=== PATIENT | male | born 1955 | race Caucasian/White ===

== ENCOUNTER → 2017-03-07 | Outpatient (CLI) | payer OTHER ==
[~2017-03-07] MED LIST: ASPI81TA28 PO; CEPH500C2 PO; CRS/10 PO; IBUP-1428 PO; LISI-461 PO; METO-452 PO; METO25TA3 PO
[2017-03-07 12:25] LABS: BASO % 0.4 %; BASO ABS # 0.02 K/uL (0-0.2); COMPLETE YES; EOS % 6.1 %; HEMATOCRIT 43.1 % (42-52); LYMPH % 39.1 %; MEAN CELL VOLUME 92.3 fL (80-100); MEAN CORPUSCULAR HEMOGLOBIN 30.6 pg (25-34); MEAN CORPUSCULAR HGB CONC 33.2 g/dl (32-36); MEAN PLATELET VOLUME 9.9 fL (7.4-10.4); MONO % 10.4 %; PLATELET COUNT 207 K/uL (130-400); RED BLOOD COUNT 4.67 M/uL (4.7-6.1); WHITE BLOOD COUNT 5.11 K/uL (4.8-10.8)
[2017-03-07 13:03] LABS: ALB/GLOB RATIO 1.2 (0.9-2); ALT/SGPT 47 U/L (12-78); BLOOD UREA NITROGEN 18 mg/dl (7-18); BUN/CREATININE RATIO 16.3 (10-20); CARBON DIOXIDE 24 mmol/L (21-32); CHLORIDE 109 mmol/L (98-107); CHOLESTEROL 115 mg/dl (0-200); GLUCOSE 95 mg/dl (70-99); POTASSIUM 4.2 mmol/L (3.5-5.1); SODIUM 141 mmol/L (136-145); TRIGLYCERIDES 92 mg/dl (0-150); VERY LOW DENSITY LIPOPROT CALC 18 mg/dl
[2017-03-07 13:05] LABS: ALKALINE PHOSPHATASE 68 U/L (45-117); AST/SGOT 29 U/L (15-37); CHOLESTEROL/HDL RATIO 4.1; HDL CHOLESTEROL 28 mg/dl; PROSTATE SPECIFIC ANTIGEN 0.612 ng/ml (0.000-4.000)
[2017-03-07 13:12] LABS: CALCIUM 8.8 mg/dl (8.5-10.1)
[2017-03-07 16:48] LABS: URINE APPEARANCE CLOUDY (CLEAR); URINE BILIRUBIN NEG (NEG); URINE COLOR YELLOW; URINE EPITHELIAL CELL AUTO 0-5 /lpf (0-5); URINE NITRITE NEG (NEG); URINE PH 5.5 (4.5-7.5); URINE SPECIFIC GRAVITY 1.027 (1.000-1.030); UROBILINOGEN NEG (NEG)
[2017-03-07 16:49] LABS: MANUAL MICROSCOPIC REQUIRED? NO; REVIEW REQ? NO
== END | disposition home or self-care (01) ==
LOC: C.LABPBG 08:50
PROVIDERS: ATTEND Physician Assistant Medical
DX: E78.5 Hyperlipidemia, unspecified (principal); I10 Essential (primary) hypertension; Z12.5 Encounter for screening for malignant neoplasm of prostate

== ENCOUNTER 2017-07-11 12:52 | Emergency (ER) | payer OTHER ==
[~2017-07-11] VITALS: Ht 170.2 cm; Wt 87.5 kg
[~2017-07-11 12:52] MED LIST changes: -CEPH500C2 PO; -LISI-461 PO; -METO-452 PO
[2017-07-11 13:00] VITALS: TEMP 36.8; Ht 170.2 cm; Wt 87.5 kg
[2017-07-11] MEDS ORDERED: DIPHTHERIA/TETANUS/PERTUSSIS 0.5 ML SYR/VIAL IM. ONE (14:15)
[2017-07-11] MEDS ORDERED: LIDO/EPINEPHRINE/SOD BICARB 20 ML VIAL INFIL ONE (14:15)
[2017-07-11] MEDS ORDERED: SODIUM CHLORIDE 0.9% 1000ML 1,000 ML IV ONE (14:15)
--- NOTE | 2017-07-11 14:21 | EMERGENCY ROOM VISIT NOTE ---
History First contact with patient: 13:57 Chief Complaint: OTHER COMPLAINT Stated Complaint: SYNCOPE/LACERATION History of Present Illness The patient is a 62 year old male who presents to the Emergency Room with complaints of a syncopal episode that occurred at approximately noon today. 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 He thinks that it may have kicked back and hit him in the left leg. He did sustain a laceration. The patient was able to sit down. The patient's was present during the episode. She says that his eyes rolled back in his head and he began to fall to the ground. She was able to catch him to ease him to the ground. He was out for approximately 1 minute. He does report diffuse sweating during the episode. He denies any dizziness, lightheadedness, chest pain, chest pressure or difficulty breathing. The patient does have a cardiac history. He has 2 stents that were placed 14 years ago. He is unsure that his tetanus is up-to- date. Review of Systems 10 system review performed and negative unless noted in HPI or below Past Medical/Surgical History Medical Problems: (1) Cardiac stents (2) Hypertension (3) [place] (myocardial infarction) Family History Heart disease Hypertension Social History Smoking Status: Former Smoker Marital Status: Housing Status: lives with family, lives with significant other Occupation Status: employed Current/Historical Medications Scheduled Aspirin (Aspirin Ec), 81 MG PO DAILY Cephalexin Monohydrate (Keflex), 500 MG PO TID Lisinopril (Lisinopril), 10 MG PO DAILY Metoprolol Succinate (Toprol Xl), 50 MG PO DAILY Rosuvastatin Calcium (Crestor), 10 MG PO DAILY Physical Exam Vital Signs Date Time Temp Pulse Resp B/P (MAP) Pulse Ox O2 Delivery O2 Flow Rate FiO2 07/11/17 16:38 68 22 142/79 97 Room Air 07/11/17 14:55 64 16 136/72 97 Room Air 07/11/17 14:24 69 07/11/17 13:11 63 118/66 69 128/66 71 134/72 07/11/17 13:00 36.8 54 14 152/68 97 Room Air Physical Exam VITALS: Vitals are noted on the nurse's note and reviewed by myself. Vital signs stable. GENERAL: 62-year-old male, in no acute distress, nondiaphoretic, well-developed well-nourished. SKIN: There is a 3 cm laceration noted to the left lower extremity proximal to the knee. No active bleeding. The edges gave the part with traction. The wound appears clean. HEAD: Normocephalic atraumatic. MOUTH: Mucous membranes moist. NECK: No JVD. HEART: Systolic murmur, regular rate and rhythm without murmurs gallops or rubs. LUNGS: Clear to auscultation bilaterally without wheezes, rales or rhonchi. No accessory muscle use. ABDOMEN: Positive bowel sounds x 4.Soft, nontender, without organomegaly. MUSCULOSKELETAL: No muscle atrophy, erythema, or edema noted. Full range of motion in all extremities. No tenderness to palpation. Strength 5/5 throughout. NEURO: Patient was alert and oriented to person place and time. Normal sensation to touch. No focal neurological deficits. Medical Decision & Procedures ER Provider Diagnostic Interpretation: CXR IMPRESSION: No acute cardiopulmonary process. Laboratory Results 07/11/17 13:20 Red Blood Count 4.52, Mean Corpuscular Volume 90.7, Mean Corpuscular Hemoglobin 31.0, Mean Corpuscular Hemoglobin Concent 34.1, Mean Platelet Volume 10.4, Neutrophils (%) (Auto) 62.8, Lymphocytes (%) (Auto) 24.3, Monocytes (%) (Auto) 8.5, Eosinophils (%) (Auto) 3.9, Basophils (%) (Auto) 0.4, Neutrophils # (Auto) 4.23, Lymphocytes # (Auto) 1.64, Monocytes # (Auto) 0.57, Eosinophils # (Auto) 0.26, Basophils # (Auto) 0.03 07/11/17 13:30 Test 07/11/17 13:20 07/11/17 13:30 White Blood Count 6.74 K/uL (4.8-10.8) Red Blood Count 4.52 M/uL (4.7-6.1) Hemoglobin 14.0 g/dL (14.0-18.0) Hematocrit 41.0 % (42-52) Mean Corpuscular Volume 90.7 fL (80-100) Mean Corpuscular Hemoglobin 31.0 pg (25-34) Mean Corpuscular Hemoglobin Concent 34.1 g/dl (32-36) Platelet Count 184 K/uL (130-400) Mean Platelet Volume 10.4 fL (7.4-10.4) Neutrophils (%) (Auto) 62.8 % Lymphocytes (%) (Auto) 24.3 % Monocytes (%) (Auto) 8.5 % Eosinophils (%) (Auto) 3.9 % Basophils (%) (Auto) 0.4 % Neutrophils # (Auto) 4.23 K/uL (1.4-6.5) Lymphocytes # (Auto) 1.64 K/uL (1.2-3.4) Monocytes # (Auto) 0.57 K/uL (0.11-0.59) Eosinophils # (Auto) 0.26 K/uL (0-0.5) Basophils # (Auto) 0.03 K/uL (0-0.2) RDW Standard Deviation 43.7 fL (36.4-46.3) RDW Coefficient of Variation 13.2 % (11.5-14.5) Immature Granulocyte % (Auto) 0.1 % Immature Granulocyte # (Auto) 0.01 K/uL (0.00-0.02) Anion Gap 5.0 mmol/L (3-11) Est Creatinine Clear Calc Drug Dose 75.1 ml/min Estimated GFR () 86.5 Estimated GFR (Non- 74.7 BUN/Creatinine Ratio 15.2 (10-20) Calcium Level 8.5 mg/dl (8.5-10.1) Troponin I < 0.015 ng/ml (0-0.045) Medications Administered Medications (Trade) Dose Ordered Sig/Lai Route Start Time Stop Time Status Last Admin Dose Admin Sodium Chloride 1,000 ml @ 999 mls/hr Q1H1M ONCE IV 07/11/17 14:15 07/11/17 15:15 DC 07/11/17 14:15 999 MLS/HR Diphtheria/ Pertussis/Tetanus Vacc (Adacel Inj) 0.5 ml ONCE ONCE IM. 07/11/17 14:15 07/11/17 14:16 DC 07/11/17 14:39 0.5 ML Procedure Verbal consent was obtained to perform the procedure. Using sterile technique the wound was cleaned with Betadine. The area was sterilely draped. 6 ml of lidocaine with epinephrine was used to anesthetize the laceration. Once the patient was anesthetized, the wound was copiously irrigated under pressure with sterile saline. The wound was explored and there were no deep structures injured such as tendons, bone, or significant blood vessels. The laceration was repaired using simple interrupted 4-0 nylon sutures with the wound edges being well approximated. The patient tolerated the procedure well. Hemostasis was achieved. The area was cleaned with sterile saline and dressed with bacitracin ointment and bandage. The patient was given a tetanus booster. The patient was discharged home in good condition. ECG Indication: syncope Rate (beats per minute): 57 Rhythm: sinus bradycardia Change: no significant change ED Course Patient was seen and examined Vital signs including blood pressure were reviewed medications list was verified with patient Labs were obtained, and a saline lock was established The laceration was repaired. Please see my procedure note. The workup was discussed with the patient and the patient's significant other. The patient was given a tetanus shot. I reviewed discharge instructions the patient. They voiced understanding and had no further questions. Medical Decision Differential diagnosis: Vasovagal syncope, cardiogenic syncope, neurogenic syncope, dehydration,, pulmonary embolus This patient is a 62-year-old male presented to the emergency department with a syncopal episode after cutting himself. This is most likely vasovagal syncope secondary to the site of the laceration. Since the patient has a cardiac history, I did a cardiac workup. EKG shows no acute ischemia. No arrhythmia noted. His troponin is negative. He is not orthostatic. the laceration was repaired, and his tetanus was updated. A believe he is stable to be discharged home. He will follow-up with his primary care physician. Suture removal in 14 days. He'll return with any new or worsening symptoms. This chart was completed in part utilizing [employer] Voice Recognition software. Attempts were made to minimize the grammatical errors, random word insertions, pronoun errors and incomplete sentences. Any formal questions or concerns about the content, text or information contained within the body of this dictation should be directly addressed to the provider for clarification. Medication Reconcilliation Current Medication List: was personally reviewed by me Blood Pressure Screening Patient's blood pressure: Normal blood pressure Impression Primary Impression: Syncope Additional Impression: Laceration Departure Information Dispostion Home / Self-Care Condition GOOD Referrals Christian Guajardo PA-C (PCP) Patient Instructions My [facility] Additional Instructions You were evaluated in the emergency department for a laceration to the left leg and also a syncopal episode (passing out.) This was likely a response to the laceration on your leg. Please rest. No strenuous activity for the next 2 days. I would avoid bending the knee for the first 3 days. Keep wound clean. It is okay to gently wash the area with soapy water. Do not submerse it in water for long periods of time such as swimming, going in hot tubs or taking baths until the sutures come out. Do not allow any crusting or dried blood to accumulate on sutures. If this occurs, use a 1:1 solution of hydrogen peroxide/water on a Q-tip to clean the wound. Use an antibiotic ointment for 3-4 days, then let wound dry. Suture removal in 14 days. Return sooner for any signs of infection (increasing redness, swelling, drainage). Ice and elevate for swelling and pain. Ibuprofen 600 mg and Tylenol 1000 mg every 6 hrs for pain. Problem Qualifiers
[2017-07-11] MEDS ORDERED: LISI-461 PO (14:24)
[2017-07-11] MEDS ORDERED: METO-452 PO (14:24)
[2017-07-11] MEDS ORDERED: CEPH500C2 PO (14:24)
--- NOTE | 2017-07-11 14:54 | DIAGNOSTIC IMAGING REPORT ---
CHEST ONE VIEW PORTABLE HISTORY: 62 years-old Male syncope cardiac hx acute syncope. COMPARISON: Chest radiograph and CTA chest 04/02/2013 TECHNIQUE: Portable upright AP view of the chest FINDINGS: Cardiac silhouette is mildly enlarged. There is no pneumothorax, pleural effusion, focal airspace consolidation or overt pulmonary edema. The bones of the chest are grossly intact. IMPRESSION: No acute cardiopulmonary process. The above report was generated using voice recognition software. It may contain grammatical, syntax or spelling errors. Electronically signed by: Jesus Silva M.D. 07/11/2017 2:52 PM Dictated Date/Time: 07/11/2017 2:51 PM
[2017-07-11 15:03] LABS: BASO % 0.4 %; BASO ABS # 0.03 K/uL (0-0.2); COMPLETE YES; EOS % 3.9 %; IG% 0.1 %; LYMPH % 24.3 %; LYMPH ABS # 1.64 K/uL (1.2-3.4); MEAN CELL VOLUME 90.7 fL (80-100); MEAN CORPUSCULAR HGB CONC 34.1 g/dl (32-36); MEAN PLATELET VOLUME 10.4 fL (7.4-10.4); MONO % 8.5 %; NEUT % 62.8 %; PLATELET COUNT 184 K/uL (130-400); RED BLOOD COUNT 4.52 M/uL (4.7-6.1); WHITE BLOOD COUNT 6.74 K/uL (4.8-10.8)
[2017-07-11 15:59] LABS: BLOOD UREA NITROGEN 16 mg/dl (7-18); BUN/CREATININE RATIO 15.2 (10-20); CALCIUM 8.5 mg/dl (8.5-10.1); CARBON DIOXIDE 25 mmol/L (21-32); CHLORIDE 112 mmol/L (98-107); CREATININE 1.05 mg/dl (0.60-1.40); GLUCOSE 110 mg/dl (70-99); POTASSIUM 4.3 mmol/L (3.5-5.1); SODIUM 142 mmol/L (136-145)
[2017-07-11 16:38] VITALS: BP 142/79; PULSE 68; O2SAT 97
== END 2017-07-11 16:47 | disposition home or self-care (01) ==
LOC: EDBD 12:52 → C.EDC 12:53
DX: R55 Syncope and collapse (principal); S71.112A Laceration without foreign body, left thigh, initial encounter; W31.1XXA Contact with metalworking machines, initial encounter; I10 Essential (primary) hypertension; R00.1 Bradycardia, unspecified; I25.2 Old myocardial infarction; Z95.5 Presence of coronary angioplasty implant and graft; Z87.891 Personal history of nicotine dependence; Z79.82 Long term (current) use of aspirin; Z82.49 Family history of ischemic heart disease and other diseases of the circulatory system; Z23 Encounter for immunization

== ENCOUNTER → 2017-12-23 | Outpatient (CLI) | payer OTHER ==
[~2017-12-23] MED LIST changes: +CEPH500C2 PO; -IBUP-1428 PO; +LISI-461 PO; +METO-452 PO; -METO25TA3 PO
[2017-12-23 13:17] LABS: BASO % 0.4 %; BASO ABS # 0.02 K/uL (0-0.2); EOS % 2.8 %; EOS ABS # 0.15 K/uL (0-0.5); HEMATOCRIT 43.7 % (42-52); HEMOGLOBIN 15.2 g/dL (14.0-18.0); IG# 0.01 K/uL (0.00-0.02); LYMPH % 40.7 %; MEAN CELL VOLUME 90.5 fL (80-100); MEAN CORPUSCULAR HEMOGLOBIN 31.5 pg (25-34); MEAN CORPUSCULAR HGB CONC 34.8 g/dl (32-36); MEAN PLATELET VOLUME 9.8 fL (7.4-10.4); MONO % 9.3 %; NEUT % 46.6 %; NEUT ABS # 2.52 K/uL (1.4-6.5); PLATELET COUNT 201 K/uL (130-400); RED CELL DISTRIBUTION WIDTH CV 13.7 % (11.5-14.5); RED CELL DISTRIBUTION WIDTH SD 45.3 fL (36.4-46.3)
[2017-12-23 13:42] LABS: ALBUMIN 4.2 gm/dl (3.4-5.0); ALKALINE PHOSPHATASE 62 U/L (45-117); ALT/SGPT 36 U/L (12-78); AST/SGOT 28 U/L (15-37); BLOOD UREA NITROGEN 14 mg/dl (7-18); CALCIUM 8.9 mg/dl (8.5-10.1); CARBON DIOXIDE 26 mmol/L (21-32); CHOLESTEROL 149 mg/dl (0-200); CREATININE 1.06 mg/dl (0.60-1.40); GLUCOSE,FASTING 95 mg/dl (70-99); LDL CHOLESTEROL (DIRECT) 106 mg/dl; POTASSIUM 4.1 mmol/L (3.5-5.1); SODIUM 140 mmol/L (136-145); TOTAL PROTEIN 7.3 gm/dl (6.4-8.2)
== END | disposition home or self-care (01) ==
LOC: C.LABPBG 10:27
PROVIDERS: ATTEND Physician Assistant Medical
DX: I10 Essential (primary) hypertension (principal); E78.5 Hyperlipidemia, unspecified; Z12.5 Encounter for screening for malignant neoplasm of prostate

== ENCOUNTER → 2018-05-13 | Outpatient (CLI) | payer OTHER ==
[2018-05-13 13:47] LABS: CHOLESTEROL 140 mg/dl (0-200); GLUCOSE,FASTING 105 mg/dl (70-99); LDL CHOLESTEROL (DIRECT) 97 mg/dl
== END | disposition home or self-care (01) ==
LOC: C.LABPBG 07:47
PROVIDERS: ATTEND Physician Assistant Medical
DX: Z00.00 Encounter for general adult medical examination without abnormal findings (principal)

== ENCOUNTER 2024-03-08 14:56 | Observation (INO) ==
--- NOTE | 2024-03-08 15:02 | Emergency Department Note ---
Impression & Plan Syncope, Nausea & vomiting, History of coronary artery disease ED Provider Note NAME: JOSE HICKEY AGE: 68 SEX: M : 1955 ARRIVES VIA: Ambulance INFORMANT: Patient, ED PROVIDER(S): Beltran Contreras MD CHIEF COMPLAINT: MEDICAL DECISION MAKING: Patient presents due to concern for syncope. Patient currently does feel improved compared to prior. IV was established and blood work was obtained. Patient was ordered IV fluid bolus 500 cc. Patient currently denies any nausea. Patient has a normal white count H&H and platelet count patient's kidney function is unremarkable. Bilirubin 1.1. The patient does have an elevated TSH and free T4 pending troponin negative. Chest x-ray without signs of obvious pneumonia or pneumothorax. I did speak with the on-call hospitalist service Dr. Rhoades and the patient was admitted to the medicine service. Discussion w/ other healthcare providers: Dr. Rhoades inpatient medicine service Prior /Outside records reviewed: None Differential diagnosis: Vasovagal event, dehydration, infection, hypoglycemia, electrolyte abnormalities, arrhythmia, pulmonary embolism, seizure among others were considered. Diagnostics, as interpreted by me: ECG: Normal sinus rhythm, rate of 77, normal intervals, normal axis no ST elevations or TWI Cardiac monitoring: An order was placed for continuous cardiac monitoring. The monitor shows a rate of 75 with sinus rhythm. Patient was placed on pulse oximetry Medical decision rules: None Imaging studies: I informally interpreted the patient's chest x-ray does not show obvious pneumonia or pneumothorax with formal report to follow. HPI: Patient presents due to concern for syncope that occurred just prior to arrival. The patient states that he was finishing up his shower and had been outside and had been taking a cool shower when he got lightheaded dizzy and associated nausea. This seemed to worsen and the sat down on the edge of the tub and called for his . Patient does not believe that he fell or hit his head. did present and he states that she was able to hold him and lay him down. No head strike. He did have loss of consciousness for approximately 3 to 5 seconds in duration. No reported incontinence or tongue biting and noticed seizure-like activity. The patient does have a prior history of CAD with 2 stents placed about 20 years prior. He does follow with Dr. Infante last had a stress test completed about 2 years ago. Patient states that he was outside today and it was fairly warm. Patient denies any current chest pains or shortness of breath but states that his symptoms are somewhat similar to when he had his prior stents. Patient states that he does feel improved. The patient's states that he did appear very pale when he passed out but his color is significantly improved. Patient's BSG was 124 for EMS and did receive 3 additional baby aspirin. PAST MEDICAL HISTORY: See Below PAST SURGICAL HISTORY: See Below SOCIAL HISTORY: See Below HOME MEDICATIONS: See Below ALLERGIES: See Below VITALS: See Below PHYSICAL EXAMINATION: GENERAL: NAD, non-toxic. EYE EXAM: Normal conjunctiva. PERRL, no anisocoria and EOM's grossly intact w/o pain. OROPHARYNX: Moist mucus membranes, grossly normal dentition. NECK: Trachea midline, no stridor. LUNGS: Clear to auscultation. Normal chest wall mechanics. HEART: NSR, no MRG. ABDOMEN: Abdomen soft, non-tender, no masses, no rebound or guarding. BACK: No CVA TTP. SKIN: No rashes and no bruising. UPPER EXTREMITIES: Upper extremities are grossly normal. LOWER EXTREMITIES: Grossly normal, trace pretibial edema without any calf pain or erythema. NEURO EXAM: A&O x3, cranial nerves II-XII grossly intact, normal speech, moves all 4 extremities. Past Med/Surg History Problem List (Updated 03/08/24 @ 16:32 by Beltran Contreras MD) History of coronary artery disease (Acute) Nausea & vomiting (Acute) Syncope (Acute) Chronic cough Sensorineural hearing loss (SNHL) of left ear with restricted hearing of right ear Hypertrophy of both inferior nasal turbinates Asymmetrical left sensorineural hearing loss Itching of ear Chronic rhinitis Nasal septal deviation Abdominal fullness (Acute) Anemia (Acute) H/O heart artery stent (Acute) Fatigue (Acute) Fever (Acute) Laceration (Acute) prison (current) use of systemic steroids (Acute) Rash (Acute) Temporal arteritis (Acute) Visual impairment in both eyes (Acute) Bladder outlet obstruction Hypertension (Chronic) Acute back pain (Acute) Flank pain (Acute) GI bleed (Acute) Syncope (Acute) Surgical History History of esophagogastroduodenoscopy (EGD) S/P colonoscopy S/P cardiac cath Family History Mother Hypertension Heart disease Father Heart disease Social History Smoking Status: Former smoker Hx Alcohol Use: Yes Preferred Language: Kyrgyz Communication Ability: Effective marital status: Current Living Situation: Spouse current occupational status: retired Feels Safe at Home: Yes Allergies Allergies Allergy/AdvReac Type Severity Reaction Status Date / Time No Known Drug Allergies Allergy Unknown Unknown Verified 04/21/23 09:13 Home Meds Home Medications Medication Instructions Recorded Confirmed ibuprofen 200 mg tablet (Motrin IB) 400 mg PO Q6H PRN Pain 08/14/19 04/21/23 losartan 100 mg tablet (Cozaar) 100 mg PO DAILY 08/14/19 04/21/23 rosuvastatin 10 mg tablet (Crestor) 10 mg PO DAILY 08/14/19 04/21/23 aspirin 81 mg tablet,delayed 81 mg PO DAILY 02/05/23 04/21/23 release carvedilol 6.25 mg tablet 6.25 mg PO BID 02/05/23 04/21/23 Previous Rx's Medication Instructions Recorded omeprazole 10 mg capsule,delayed 10 mg PO DAILY #90 caps 03/19/23 release famotidine 20 mg tablet (Acid 20 mg PO DAILY #90 tabs 03/31/23 D[employer] Work[employer] (famotidine)) Results & Data (ED) Vital Signs Vital Signs - 24 hr 03/08/24 15:05 03/08/24 15:05 03/08/24 15:05 Temperature 36.7 C Temperature Source Oral Pulse Rate 74 Respiratory Rate 18 18 Blood Pressure 158/61 H Blood Pressure Mean 93 Pulse Oximetry 95 Oxygen Delivery Method Room Air Room Air Sepsis Recent Fever Within 48 Hours No Sepsis New/Unexplained Change in Mental Status N/A Sepsis Action Taken by Nursing No Action Required 03/08/24 15:11 03/08/24 15:24 Temperature Temperature Source Pulse Rate 78 75 Respiratory Rate 18 Blood Pressure Blood Pressure Mean Pulse Oximetry 95 Oxygen Delivery Method Room Air Sepsis Recent Fever Within 48 Hours Sepsis New/Unexplained Change in Mental Status Sepsis Action Taken by [facility] Medications Current Medication List: was personally reviewed by me Laboratory Data Attestation: I reviewed the patient's lab results. 03/08/24 15:07 03/08/24 15:07 Lab Results 03/08/24 Range/Units 15:07 WBC 9.00 (4.8-10.8) K/ul RBC 4.92 (4.70-6.10) M/uL Hgb 14.9 (14.0-18.0) g/dl Hct 43.2 (42.0-52.0) % MCV 87.8 (80.0-100.0) fL MCH 30.3 (25.0-34.0) pg MCHC 34.5 (32.0-36.0) g/dL RDW Std Deviation 43.5 (36.4-46.3) fL RDW Coeff of Sharri 13.7 (11.5-14.5) % Plt Count 249 (130-400) K/uL MPV 10.0 (9.4-12.4) fL Immature Gran % (Auto) 1.4 % Neut % (Auto) 67.9 % Lymph % (Auto) 17.0 % Dane % (Auto) 11.2 % Eos % (Auto) 1.9 % Baso % (Auto) 0.6 % Neut # (Auto) 6.11 (1.40-6.50) K/uL Lymph # (Auto) 1.53 (1.20-3.40) K/uL Dane # (Auto) 1.01 H (0.11-0.59) K/uL Eos # (Auto) 0.17 (0.00-0.50) K/uL Baso # (Auto) 0.05 (0.00-0.20) K/uL Immature Gran # (Auto) 0.13 (0.01-0.20) K/uL PT 11.4 (9.0-12.0) Seconds INR 1.1 (0.9-1.1) APTT 20 L (21-31) Seconds PTT Ratio 0.7 Sodium 137 (136-145) mmol/L Potassium 4.5 (3.5-5.1) mmol/L Chloride 106 (98-107) mmol/L Carbon Dioxide 25 (21-32) mmol/L Anion Gap 6 (3-11) BUN 19 (6-23) mg/dl Creatinine 1.27 (0.6-1.4) mg/dl Est Cr Clr Drug Dosing 60.4 ml/min Est GFR ( Amer) 65.9 ml/min Est GFR (Non-Af Amer) 56.9 ml/min BUN/Creatinine Ratio 15.0 (10-20) Glucose 110 H (70-99(Fasting)) mg/dl Calcium 10.1 (8.6-10.3) mg/dl Magnesium 2.3 (1.7-2.4) mg/dl Total Bilirubin 1.1 H (0.2-1.0) mg/dl AST 32 (13-39) U/L ALT 37 (7-52) U/L Alkaline Phosphatase 66 (34-104) U/L Troponin I High Sens 7.6 (0-20) pg/ml Total Protein 8.0 (6.0-8.3) gm/dl Albumin 4.7 (3.4-5.0) gm/dl Globulin 3.3 (2.5-4.0) gm/dl Albumin/Globulin Ratio 1.4 (0.9-2) TSH 11.753 H (0.300-4.500) uIu/ml Administered Medications Discontinued Medications Sodium Chloride (Nss) 500 mls @ 999 mls/hr IV .Q31M LANE Stop: 03/08/24 15:45 Last Infusion: 03/08/24 15:54 Dose: Infused Documented By: JUAN JOSÉ Admin: 03/08/24 15:19 Dose: 999 mls/hr Documented By: JUAN JOSÉ Imaging Data Radiologist's Impression: Chest X-Ray 03/08/24 15:45 XR chest 1V portable CLINICAL HISTORY: syncope TECHNIQUE: Single frontal radiograph of the chest was obtained. Comparison: None available at the time of this dictation. FINDINGS: No lines and tubes are seen. Cardiomegaly is noted. The lungs are clear. No evidence of pleural effusion or pneumothorax. IMPRESSION: No acute chest disease. ACT 112: Negative or not required by law. Electronically signed by: Roney Francis M.D. 03/08/2024 4:03 PM Discharge Plan Visit Data Chief Complaint: Syncope Stated Complaint: SYNCOPE ED Provider: Beltran Contreras Discharge Problem: Syncope, Nausea & vomiting, History of coronary artery disease Forms Stand Alone Forms: [employer] Prescriptions Prescriptions: No Action famotidine [Acid D[employer] Worker (famotidine)] 20 mg tablet 20 mg PO DAILY Qty: 90 3RF omeprazole 10 mg capsule,delayed release(DR/EC) 10 mg PO DAILY Qty: 90 4RF Rx Instructions: Take 30 mins before a meal with protein ibuprofen [Motrin IB] 200 mg Tablet 400 mg PO Q6H PRN (Reason: Pain) losartan [Cozaar] 100 mg tablet 100 mg PO DAILY rosuvastatin [Crestor] 10 mg tablet 10 mg PO DAILY aspirin [Aspir-Low] 81 mg Tablet,Delayed Release (Dr/Ec) 81 mg PO DAILY carvedilol 6.25 mg tablet 6.25 mg PO BID Referrals Referrals: Christian Guajardo [Primary Care Provider] - Discharge Problem: Syncope Qualifiers: Syncope type: unspecified Qualified Code(s): R55 - Syncope and collapse Nausea & vomiting Qualifiers: Vomiting type: unspecified Qualified Code(s): R11.2 - Nausea with vomiting, unspecified
[2024-03-08] MEDS: SODIUM CHLORIDE 0.9% 500 ML IV SCH (15:19)
[2024-03-08 15:33] LABS: Basophils # (auto) 0.05 K/uL (0.00-0.20); Basophils % (auto) 0.6 %; Eosinophils # (auto) 0.17 K/uL (0.00-0.50); Eosinophils % (auto) 1.9 %; Hematocrit (blood only) 43.2 % (42.0-52.0); Hemoglobin 14.9 g/dl (14.0-18.0); Immature Granulocytes # (auto) 0.13 K/uL (0.01-0.20); Immature Granulocytes % (auto) 1.4 %; Lymphocytes # (auto) 1.53 K/uL (1.20-3.40); Mean Corpuscular Hemoglobin 30.3 pg (25.0-34.0); Mean Corpuscular Hgb Conc 34.5 g/dL (32.0-36.0); Mean Corpuscular Volume 87.8 fL (80.0-100.0); Monocytes # (auto) 1.01 K/uL (0.11-0.59); Monocytes % (auto) 11.2 %; Neutrophils # (auto) 6.11 K/uL (1.40-6.50); Neutrophils % (auto) 67.9 %; Platelet Count 249 K/uL (130-400); RDW Coefficient of Variation 13.7 % (11.5-14.5); RDW Standard Deviation 43.5 fL (36.4-46.3); Red Blood Count 4.92 M/uL (4.70-6.10)
[2024-03-08 15:48] LABS: Albumin Globulin Ratio 1.4 (0.9-2); Albumin Level 4.7 gm/dl (3.4-5.0); Bilirubin,Total 1.1 mg/dl (0.2-1.0); Calcium 10.1 mg/dl (8.6-10.3); Creatinine Clr Calc Pharmacy 60.4 ml/min; Est GFR (African American) 65.9 ml/min; Est GFR (Non-African American) 56.9 ml/min; Globulin 3.3 gm/dl (2.5-4.0); Magnesium 2.3 mg/dl (1.7-2.4); Potassium 4.5 mmol/L (3.5-5.1)
[2024-03-08 15:55] LABS: Troponin I High Sensitivity 7.6 pg/ml (0-20)
[2024-03-08 15:59] LABS: INR 1.1 (0.9-1.1); Partial Thromboplastin Ratio 0.7; Partial Thromboplastin Time 20 Seconds (21-31); Prothrombin Time 11.4 Seconds (9.0-12.0)
--- NOTE | 2024-03-08 16:04 | XRay Report ---
XR chest 1V portable CLINICAL HISTORY: syncope TECHNIQUE: Single frontal radiograph of the chest was obtained. Comparison: None available at the time of this dictation. FINDINGS: No lines and tubes are seen. Cardiomegaly is noted. The lungs are clear. No evidence of pleural effus ion or pneumothorax. IMPRESSION: No acute chest disease. ACT 112: Negative or not required by law. Electronically signed by: Roney Francis M.D. 03/08/2024 4:03 PM
[2024-03-08 16:05] LABS: Thyroid Stimulating Hormone 11.753 uIu/ml (0.300-4.500)
--- NOTE | 2024-03-08 16:28 | History & Physical Report ---
Date of Service March 08, 2024 Assessment & Plan (1) Syncope: Plan: Syncopal episode on the morning of 03/08 Patient was reportedly suntanning, and then went to go shower when he became pale/diaphoretic/nauseous; sat down, and then reports he syncopized for 3-5 seconds No stroke or seizure-like activity witnessed Glucose WNL on arrival Head CT w/o ordered, pending Echocardiogram ordered, pending Orthostatic vitals ordered, pending Suspect vasovagal syncope (or potentially cardiogenic); DDx at this time also includes CVA/TIA, orthostasis, hypovolemia, electrolyte disturbance, metabolic disturbance, seizure, and TX (among other etiologies) Zofran as needed for nausea Continuous telemetry monitoring Fall precautions PT/OT evaluations appreciated A.m. CBC, BMP (2) History of coronary artery disease: Plan: History of NSTEMI s/p stents x 2 in 2003 Clinically, patient denies chest pain during his first NSTEMI, but experienced symptoms similar today (nausea/diaphoresis/neck and back pain) Troponin WNL at 7.4 on arrival, repeat pending Continue aspirin, carvedilol, losartan, and spironolactone Continuous telemetry monitoring (3) GERD (gastroesophageal reflux disease): Plan: Continue famotidine, and omeprazole (or pantoprazole equivalent) (4) Elevated TSH: Plan: TSH elevated at 11.753 on arrival, normal T4 Free T3 ordered, pending Plan [facility]: [facility] Full code Regular diet VTE PPx: SCDs (head CT pending) History of Present Illness Chief Complaint: Syncopal episode Primary Care Provider: Christian Santizo is a pleasant 68-year-old male with PMH of NSTEMI s/p stents x 2, HTN, GI bleed, syncope, SNHL of left ear, and chronic cough. He presented via EMS for syncopal event on 03/08. Patient reports he was out tending back this morning, then went into the shower. His reports that he started banging on the shower wall, and came out looking pale and diaphoretic. He then sat on the commode for several seconds before passing out and being lowered to the floor by his . Per , he was out for 3-5 seconds, laying flat on his stomach. denies seizure-like activity (such as jerking, loss of continence, or tongue biting). She also denies any strokelike symptoms prior to syncope (such as slurred speech, facial droop, or unilateral deficits). Patient does have a history of 2 vasovagal's (both episodes occurred after he had accidentally cut himself), but reports this episode was different. Patient denies chest pain or SOB. Patient does have a history of an TX at 48 years old, where he did not exhibit chest pain, but instead exhibited nausea and pain between shoulder blades. Today, he was experiencing something similar (nausea, neck pain, and left upper abdominal discomfort). History of tPA and nitro drip at [place] ED secondary to NSTEMI, with stent placement in the LAD and circumflex and [place]. Patient follows with Dr. Goodman in [place]. No recent injuries to the chest wall or stomach. No sick contacts. No history of stroke or strokelike symptoms. Patient does have a history of Lyme disease (diagnosed in 2012). He denies any rashes on his body. Patient took all of his regular morning medications today; no recent change in medications (such as blood pressure medications). He denies history of smoking, tobacco use, and alcohol use. Patient is hypertensive at 158/61 at time of admission. ED course: NSS 500 mL IV ROS: Patient endorses lightheadedness, syncope, dry cough (which patient attributes to Aldactone), nausea, left lower rib cage (pain to palpation; otherwise he does not feel it), and occasional intermittent hand neuropathy. Patient denies fever, chills, night-sweats, PAYNE, rashes, tick-bites, changes in vision, chest pain, SOB, chest palpitations, pleuritic CP, hemoptysis, vomiting, changes in urinary/bowel habits, dysuria, blood in the urine/stool, Allergies Allergy/AdvReac Type Severity Reaction Status Date / Time amlodipine [From [facility]] Allergy Severe SWELLING Verified 03/08/24 17:51 OF ARMS AND LEGS BILATERALLY Home Medications Medication Instructions Recorded Confirmed Type ibuprofen 200 mg tablet (Motrin IB) 400 mg PO Q6H PRN Pain 08/14/19 03/08/24 History losartan 100 mg tablet (Cozaar) 100 mg PO DAILY 08/14/19 03/08/24 History aspirin 81 mg tablet,delayed 81 mg PO DAILY 02/05/23 03/08/24 History release carvedilol 6.25 mg tablet 6.25 mg PO BID 02/05/23 03/08/24 History omeprazole 10 mg capsule,delayed 10 mg PO DAILY #90 caps 03/19/23 03/08/24 Rx release famotidine 20 mg tablet (Acid 20 mg PO DAILY #90 tabs 03/31/23 03/08/24 Rx Equipment Technician (famotidine)) rosuvastatin 10 mg tablet 10 mg PO DAILY 03/08/24 03/08/24 History spironolactone 25 mg tablet 25 mg PO DAILY 03/08/24 03/08/24 History Past Med/Surg History Problem List (Updated 03/08/24 @ 17:19 by Rudy Funes PA-C) Elevated TSH GERD (gastroesophageal reflux disease) History of coronary artery disease (Acute) Nausea & vomiting (Acute) Syncope (Acute) Chronic cough Sensorineural hearing loss (SNHL) of left ear with restricted hearing of right ear Hypertrophy of both inferior nasal turbinates Asymmetrical left sensorineural hearing loss Itching of ear Chronic rhinitis Nasal septal deviation Abdominal fullness (Acute) Anemia (Acute) H/O heart artery stent (Acute) Fatigue (Acute) Fever (Acute) Laceration (Acute) group home (current) use of systemic steroids (Acute) Rash (Acute) Temporal arteritis (Acute) Visual impairment in both eyes (Acute) Bladder outlet obstruction Hypertension (Chronic) Acute back pain (Acute) Flank pain (Acute) GI bleed (Acute) Syncope (Acute) Surgical History History of esophagogastroduodenoscopy (EGD) S/P colonoscopy S/P cardiac cath Family History Mother Hypertension Heart disease Father Heart disease Social History Smoking Status: Former smoker Hx Alcohol Use: Yes Preferred Language: Afghan Communication Ability: Effective marital status: Current Living Situation: Spouse current occupational status: retired Feels Safe at Home: Yes Review of Systems Review of Systems: See HPI above Physical Exam Physical Exam: General: no acute distress; pleasant affect; non-toxic appearing; well- nourished; cooperative; SpO2 96% on RA HEENT: normocephalic, atraumatic; no scleral icterus; PERRLA; moist mucus membrane; vision and hearing grossly intact; patient reports intact and symmetric sensation in the face assessed via light touch at 3 separate points Neck: supple; no lymphadenopathy; trachea midline; patient demonstrates ability to shrug shoulders and rotate neck against resistance without pain or dizziness Skin: warm, dry without signs of tenting; mild sunburn; no cyanosis; no rashes, bruising, or lesions noted CV: chest wall NTP; RRR; S1/S2 normal; no murmurs/rubs/gallops; pulses intact and symmetric at radial, DP, and PT Lungs: no acute respiratory distress; symmetrical chest wall expansion; clear breath sounds across all lung landaverde w/o adventitious sounds; no wheezing ABD: Soft, NTP; of note, left upper quadrant is no longer tender to palpation; BS present; no rebound/guarding; moderate distention secondary to body habitus MSK: no tics or fasciculations; no edema noted in the LEs b/l, nonerythematous; patient demonstrates ability to wiggle toes bilaterally Neuro: A&Ox3; normal mood and affect; fluent speech; no facial droop; no focal deficits; sensation grossly intact and symmetric in the face/UEs/LEs b/l; negative pronator drift Results & Data Results & Data Vital Signs (Past 12 Hours) Vital Signs Temp Pulse Resp BP Pulse Ox O2 Del Method 03/08/24 15:24 75 03/08/24 15:11 78 18 95 Room Air 03/08/24 15:05 18 03/08/24 15:05 Room Air 03/08/24 15:05 36.7 C 74 18 158/61 H 95 Room Air Laboratory Results Abnormal lab results 03/08/24 Range/Units 15:07 [place] # (Auto) 1.01 H (0.11-0.59) K/uL APTT 20 L (21-31) Seconds Glucose 110 H (70-99(Fasting)) mg/dl Total Bilirubin 1.1 H (0.2-1.0) mg/dl TSH 11.753 H (0.300-4.500) uIu/ml Diagnostic Findings Chest X-Ray 03/08/24 15:45 XR chest 1V portable CLINICAL HISTORY: syncope TECHNIQUE: Single frontal radiograph of the chest was obtained. Comparison: None available at the time of this dictation. FINDINGS: No lines and tubes are seen. Cardiomegaly is noted. The lungs are clear. No gustabo dence of pleural effusion or pneumothorax. IMPRESSION: No acute chest disease. ACT 112: Negative or not required by law. Electronically signed by: Roney Francis M.D. 03/08/2024 4:03 PM ECG Additional Comments: ECG revealed NSR at 77 bpm; QTc 418 Code Status & VTE Plan Code Status Full code VTE Prophylaxis Plan VTE Prophylaxis will be ordered: Yes Supervising Physician Co-Signing Physician Notes I have personally seen, evaluated and examined the patient. I have also personally discussed the management of the patient with the resident physician/HOANG and I agree with the exam findings documented in the history and physical examination and the documented assessment and plan unless otherwise stated below. Brief Exam: In general very pleasant 68-year-old male who is alert and oriented x 3 at the time of my examination. He is accompanied by his at the time my exam. The history of present illness is as described above he was at sun bathing moment took a hot shower he got lightheaded and sat down on the edge of the tub. Called his . He and she transferred him to the commode at which point he syncopized for 3 to 5 seconds. According to the he was there during the entire clinic there was no seizure-like activity. There is no postictal type state he was completely alert and oriented when he came to. HEENT: Normocephalic atraumatic. Extraocular muscles intact bilaterally pupils are equal and reactive to light bilaterally. Heart: Regular rate and rhythm no murmur or ectopy or rub. Neck: No carotid bruits no masses or JVD. Lungs: Clear bilaterally. Abdomen: Soft protuberant nontender. Neurologically: Cranial nerves II through XII are grossly intact no focal deficit seen. Assessment/plan: As described above. Please refer to orders for further planning. Suspect vasovagal syncope. Rule out acute myocardial infarction. Repeat troponin is pending. PG Care Time/CCT Total # of Minutes Spent Total Time Spent with Patient: Total time spent is greater than 50% in coordination of care (as documented) at patient's floor/unit and/or counseling patient: Coding [place] [address] INT INP/OBS CARE MIN Patient Type Established Medical Decision Making Moderate Complexity Diagnoses Syncope R55 Syncope type: unspecified History of coronary artery disease Z86.79 GERD (gastroesophageal reflux disease) K21.9 Elevated TSH R79.89 (1) Syncope Syncope type: unspecified Qualified Code(s): R55 - Syncope and collapse
[2024-03-08 16:42] LABS: T4 Free Thyroxine 0.81 ng/dl (0.61-1.60)
--- NOTE | 2024-03-08 17:21 | Electrocardiogram Report ---
Test Reason : Blood Pressure : / mmHG Vent. Rate : 077 BPM Atrial Rate : 077 BPM P-R Int : 180 ms QRS Dur : 098 ms QT Int : 370 ms P-R-T Axes : 057 040 021 degrees QTc Int : 418 ms Normal sinus rhythm Normal ECG When compared with ECG of 11-JUL-2017 14:33, No significant change was found Confirmed by Garrison Schulz ([id number]) on 03/08/2024 5:20:47 PM Referred By: Christian Guajardo Confirmed By:Garrison Schulz
--- NOTE | 2024-03-08 17:51 | CT Scan Report ---
CT SCAN OF THE BRAIN WITHOUT IV CONTRAST CLINICAL HISTORY: Syncope. COMPARISON STUDY: MRI of the brain dated 05/24/2020. TECHNIQUE: Unenhanced axial CT scan of the brain is performed from the vertex to the skull base. A do se lowering technique was utilized adhering to the principles of ALARA. CT DOSE: 547.75 mGy.cm FINDINGS: Brain parenchyma: There is age-related involutional change noting mild subcortical and periventricula r microangiopathic disease. There is no hemorrhage, mass effect, or evidence of acute territorial isc hemia by CT criteria. Vail-white matter differentiation is preserved. No extra-axial fluid collection is seen. Ventricles, sulci, cisterns: Prominent secondary to involutional change. Intracranial vasculature: There is atherosclerotic calcification of the cavernous carotid arteries. Calvarium: Unremarkable. Sinuses and mastoids: There is mild mucosal thickening within the frontal and ethmoid sinuses. The ma stoid air cells are well pneumatized. Orbits: The bony orbits are grossly intact. There are bilateral ocular lens implants. IMPRESSION: There is no hemorrhage, mass effect, or evidence of acute territorial ischemia by CT sergio leonardo. ACT 112: Negative or not required by law. Electronically signed by: Jarrod Moody M.D. 03/08/2024 5:50 PM
[2024-03-08] MEDS ORDERED: ONDANSETRON INJ 2 MG/ML 2 ML VIAL IV PRN (20:03)
[2024-03-08] MEDS ORDERED: ACETAMINOPHEN 325 MG TAB PO PRN (20:03)
--- OUTSIDE RECORDS SUMMARY | 2024-03-08 22:45 | External Medical Summary | Summary of Care ---
Author Name Unknown Organization [facility] Address [address] [place] [address] Phone [phone] Care Team Providers Care Telephone Sterilizer Name Role Phone Christian Guajardo PA-C Primary Care Provider [phone] Reason for Visit * Reason Comments Follow Up Encounter Details Date Type Department Care Team (Late st Contact Info) Description 02/09/2024 8:00 AM EDT Office Visit Ophthalmology, [facility] [address] [place] [address] Joey Haddad, DO [address] [place] [address] Myogenic ptosis of eyelid of both eyes*; Dermatochalasis of both upper eyelids; Brow ptosis, bilateral Allergies No known active allergiesdocumented as of this encounter (statuses as of 02/09/2024) Medications Medication Sig Dispensed Refills Start Date End Date Status METOPROLOL SUCCINATE 25 MG PO TB24 1 daily 0 04/28/2009 Active ASPIRIN 81 MG PO CHEW One pill by mouth once a day with food 100 5 04/28/2009 Active rosuvastatin (CRESTOR) 10 MG Tablet Take 10 mg by mouth daily. Active lisinopril (PRINIVIL) 10 MG Tablet Take 10 mg by mouth daily. Active documented as of this encounter (statuses as of 02/09/2024) Active Problems Problem Noted Date Diagnosed Date Dermatitis 04/07/2013 DYSLIPIDEMIA, GOAL TO BE DETERMINED 08/29/2009 Overview: Per Lipid Taxonomy. Contusion of elbow 05/08/2005 History of tobacco use documented as of this encounter (statuses as of 02/09/2024) Resolved Problems Problem Noted Date Diagnosed Date Resolved Date Mixed dyslipidemia 9 Overview: Per Lipid Taxonomy. documented as of this encounter (statuses as of 02/09/2024) Immunizations Name Administration Dates Next Due TDAP (age 11 and older)(Adacel) 09/22/2004 documented as of this encounter Social History Tobacco Use Types Packs/Day Years Used Date Smoking Tobacco: Former Comments:2002 Alcohol Use Standard Drinks/Week Comments Yes 0 (1 standard drink = 0.6 oz pur e alcohol) Sex and Gender Information Value Date Recorded Sex Assigned at Not on file Gender Identity Not on file Sexual Orientation Not on file Job Start Date Occupation Industry Not on file Not on file Not on file documented as of this encounter Progress Notes * Joey Haddad DO - 02/09/2024 7:56 AM EDT Sukhdev Kiran is a 68 year old male who returns for eyelid evaluation. Pt reports his eyelid skin seem to interfere with his vision.manually lifting them makes it better. [place] and returns to further explore. Ophthalmology Past History: reports Stroke right eye from lyme dz, cataract extraction both eyes, glasses Ophthalmology Family History: none Ophthalmology ROS: Positive for eyelid interfering with his vision and no recent significant changein vision,no eye pain, redness, discharge,no diplopia Current Ophthalmic Medications: None EXAM: Base Eye Exam Visual Acuity (Snellen - Linear) Right Left Dist sc 20/100 +1 20/25 -12 Dist ph sc 20/70 +1 Extraocular Movement Right Left Full Full Neuro/Psych Oriented x3: Yes Slit Lamp and Fundus Exam External Exam Right Left External 3+ Brow ptosis 3+ Brow ptosis Palpebral fissure 5 mm 6 mm MRD1 1 mm 1.5 mm Levator 15 mm 15 mm Slit Lamp Exam Right Left Lids/Lashes 3+ ptosis, 3+ Dermatochalasis - upper lid 3+ Ptosis, 3+ Dermatochalasis - upper lid Conjunctiva/Sclera White and quiet White and quiet Cornea Clear Clear Anterior Chamber Deep and quiet Deep and quiet Iris Round and reactive Round and reactive Lens PC IOL PC IOL External photos obtained demonstrating above findings Octopus landaverde obtained demonstrating superior field of vision constricted with improvement in the field with eyelid elevation IMPRESSION: 1. DCL and ptosis OU 2. Brow ptosis OU PLAN: 1. R/B/A discussed including but not limited to pain, bleeding, scarring, infection, Loss of vision, loss of eye, need for further surgery, eye drops in the post operative period, the use of regionalor general anesthesia. 2. To consider bleph levators OU 3. Photo and landaverde today 4. ASA hold 7 days Joey Haddad DO documented in this encounter Nursing Notes * Chelsy House LPN - 02/09/2024 7:52 AM EDT Sukhdev Kiran is a 68 year old male who presents for follow up to discuss lids/brow. Last Visit: 06/30/2023 (in office), Visit date not found (telemedicine) He currently states blurry Are you diabetic? No Current Ophthalmic Medications: None VA, IOP, current eyeglass Rx, and pupil check and dilation if needed can be found in ophth exam. documented in this encounter Plan of Treatment Scheduled Orders Name Type Priority Associated Diagnoses Orde r Schedule EXTERNAL EYE PHOTOGRAPHY Procedures Routine Myogenic ptosis of eyelid of both eyes Dermatochalasis of both upper eyelids Ordered: 02/09/2024 VISUAL FIELD EXAM(S), LIMITED Procedures Routine Myogenic ptosis of eyelid of both eyes Dermatochalasis of both upper eyelids Ordered: 02/09/2024 Health Maintenance Due Date Last Done Comments GFR 1953 Lipid Panel 1953 Albumin/Creatinine Ratio 1971 Hepatitis C Screening 1971 Cologuard 1998 Colonoscopy 1998 Colorectal Cancer Screening 1998 Fecal Occult Blood Test 1998 Sigmoidoscopy 1998 Zoster Vaccines (1 of 2) 2003 DTaP,Tdap,and Td Vaccines (2 - Td or Tdap) 09/22/2014 09/22/2004 Depression Screening 10/03/2015 10/03/2014 AAA Screening 2018 Pneumococcal Vaccine: 65+ Years (1 of 1 - PCV) 2018 COVID-19 Vaccine (3 - 2022-2 4 season) 2023 11/29/2020, 11/08/2020 Influenza Vaccine (FLU shot) (Season Ended) 2024 GARDASIL-HPV IMMUNIZATION SERIES Aged Out No longer eligible b ased on patient's age to complete this topic Hepatitis B Aged Out No longer eligi ble based on patient's age to complete this topic MENINGOCOCCAL (MENACTRA/MENVEO) Aged Out No longer eligible b ased on patient's age to complete this topic documented as of this encounter Medical Devices Not on filedocumented as of this encounter Visit Diagnoses Diagnosis Myogenic ptosis of eyelid of both eyes- Primary Myogenic ptosis Dermatochalasis of both upper eyelids Brow ptosis, bilateral documented in this encounter Care Teams Telephone Sterilizer Relationship Specialty Start Date End Date Christian Guajardo, PACaitlinC [address] [place] [id number] PCP - General Physician Help Aid 04/07/13 documented as of this encounter
--- OUTSIDE RECORDS SUMMARY | 2024-03-08 22:45 | External Medical Summary | Summary of Care ---
Author Name Unknown Organization [facility] Address [address] [place] [address] Phone [phone] Care Team Providers Care Parts Manager Name Role Phone Christian Guajardo PA-C Primary Care Provider [phone] Reason for Visit * Reason Comments Follow Up Encounter Details Date Type Department Care Team (Late st Contact Info) Description 02/09/2024 8:00 AM EDT Office Visit Ophthalmology, [facility] [address] [place] [address] Joey Haddad, DO [address] [place] [address] Myogenic ptosis of eyelid of [...] bilateral documented in this encounter Care Teams Parts Manager Relationship Specialty Start Date End Date Christian Guajardo, PACaitlinC [address] [place] [id number] PCP - General Physician Fulfillment Mail Clerk 04/07/13 documented as of this encounter
--- OUTSIDE RECORDS SUMMARY | 2024-03-08 22:45 | External Medical Summary | Summary of Care ---
Author Name Unknown Organization [facility] Address [address] [place] [address] Phone [phone] Care Team Providers Care Homoeopath Name Role Phone Christian Guajardo PA-C Primary Care Provider [phone] Reason for Visit * Reason Comments Follow Up Encounter Details Date Type Department Care Team (Late st Contact Info) Description 02/09/2024 8:00 AM EDT Office Visit Ophthalmology, [facility] [address] [place] [address] Joey Haddad, DO [address] [place] [address] Myogenic ptosis of eyelid of [...] Not on filedocumented as of this encounter Procedures Procedure Name Priority Date/Time Associated Diagnosis Comments VISUAL FIELD EXAM(S), LIMITED Routine 02/09/2024 9:05 AM EDT Myogenic ptosis of eyelid of both eyes Dermatochalasis of both upper eyelids documented in this encounter Results * VISUAL FIELD EXAM(S), LIMITED (02/09/2024 9:05 AM EDT) Joey Haddad DO MEDICINE [facility] documented in this encounter Visit Diagnoses Diagnosis Myogenic ptosis of eyelid of both eyes- Primary Myogenic ptosis Dermatochalasis of both upper eyelids Brow ptosis, bilateral documented in this encounter Care Teams Homoeopath Relationship Specialty Start Date End Date Christian Guajardo, ZOLTANC [address] [place] [phone] PCP - General Physician Finisher Merchant Products 04/07/13 documented as of this encounter
[2024-03-09 07:36] LABS: Basophils # (auto) 0.04 K/uL (0.00-0.20); Basophils % (auto) 0.5 %; Eosinophils # (auto) 0.16 K/uL (0.00-0.50); Eosinophils % (auto) 2.2 %; Hematocrit (blood only) 40.8 % (42.0-52.0); Hemoglobin 13.6 g/dl (14.0-18.0); Immature Granulocytes # (auto) 0.03 K/uL (0.01-0.20); Immature Granulocytes % (auto) 0.4 %; Lymphocytes # (auto) 2.16 K/uL (1.20-3.40); Lymphocytes % (auto) 29.3 %; Mean Corpuscular Hgb Conc 33.3 g/dL (32.0-36.0); Mean Corpuscular Volume 90.1 fL (80.0-100.0); Mean Platelet Volume 10.1 fL (9.4-12.4); Monocytes # (auto) 0.83 K/uL (0.11-0.59); Monocytes % (auto) 11.3 %; Neutrophils # (auto) 4.14 K/uL (1.40-6.50); Neutrophils % (auto) 56.3 %; Platelet Count 217 K/uL (130-400); RDW Coefficient of Variation 13.9 % (11.5-14.5); RDW Standard Deviation 45.8 fL (36.4-46.3); Red Blood Count 4.53 M/uL (4.70-6.10); White Blood Count 7.36 K/ul (4.8-10.8)
[2024-03-09 08:04] LABS: BUN Creatinine Ratio 17.4 (10-20); Calcium 9.1 mg/dl (8.6-10.3); Creatinine Clr Calc Pharmacy 66.7 ml/min; Est GFR (African American) 74.3 ml/min; Est GFR (Non-African American) 64.1 ml/min; Potassium 4.1 mmol/L (3.5-5.1)
[2024-03-09] MEDS: PANTOprazole 40 MG TAB PO SCH (08:18)
[2024-03-09] MEDS: ROSUVASTATIN CALCIUM 10 MG TAB PO SCH (08:18)
[2024-03-09] MEDS: FAMOTIDINE 20 MG TAB PO SCH (08:18)
[2024-03-09] MEDS: ASPIRIN 81 MG ECTAB PO SCH (08:18)
[2024-03-09] MEDS: carvediloL 6.25 MG TAB PO SCH (08:18)
[2024-03-09] MEDS: LOSARTAN POTASSIUM 50 MG TAB PO SCH (08:18)
[2024-03-09] MEDS: SPIRONOLACTONE 25 MG TAB PO SCH (08:18)
[2024-03-09 10:11] LABS: Appearance Urine Clear (Clear); Bilirubin Urine Negative (Negative); Blood Urine Negative (Negative); Color Urine Yellow; Glucose Urine UA Negative (Negative); Ketones Urine Negative (Negative); Leukocyte Esterase Urine Negative (Negative); Nitrite Urine Negative (Negative); Protein Urine Negative (Negative); Urobilinogen Urine Negative (Negative)
--- NOTE | 2024-03-09 15:20 | XCELERA ---
[id number]
--- NOTE | 2024-03-09 16:33 | Discharge Summary ---
Discharge Summary Date of Service March 09, 2024 Principal Dx & Hospital Course #1 = Principal Diagnosis (1) Syncope: Syncopal episode on the morning of 03/08 Patient was reportedly suntanning, and then went to go shower when he became pale/diaphoretic/nauseous; sat down, and then reports he syncopized for 3-5 seconds No stroke or seizure-like activity witnessed Glucose WNL on arrival Head CT negative, CXR negative, labs and UA normal Orthostatics negative and BPs were actually a bit high. He has had 3 syncopal episodes now in the last 2-3 years, typically in response to pain or a cut, but this one seemed unprovoked. He was taking a cold shower and this could also trigger a vagal response. No changes to meds. ECHO normal, ECG normal, no arrhythmias on tele, and troponin negative x 2 Dc to home and will order 30 day cardiac event monitor for after discharge F/u with PCP and Cardiology (2) History of coronary artery disease: History of NSTEMI s/p stents x 2 in 2003 Troponin neg x 2 Continue aspirin, carvedilol, losartan, and spironolactone (3) GERD (gastroesophageal reflux disease): Continue famotidine, and omeprazole (4) Elevated TSH: TSH elevated at 11.753 on arrival, normal T4 Free T3 elevated Suspect could just be abnormal from stress of syncope, but recommend repeating as outpt in 2-3 weeks with PCP Plan Disposition: dc to home VTE PPx: SCDs Notes For Next Care Provider 30 Day cardiac event monitor ordered for after discharge Medication Changes From Visit None Admission HPI Per Admitting Provider Sukhdev is a pleasant 68-year-old male with PMH of NSTEMI s/p stents x 2, HTN, GI bleed, syncope, SNHL of left ear, and chronic cough. He presented via EMS for syncopal event on 03/08. Patient reports he was out tending back this morning, then went into the shower. His reports that he started banging on the shower wall, and came out looking pale and diaphoretic. He then sat on the commode for several seconds before passing out and being lowered to the floor by his . Per , he was out for 3-5 seconds, laying flat on his stomach. denies seizure-like activity (such as jerking, loss of continence, or tongue biting). She also denies any strokelike symptoms prior to syncope (such as slurred speech, facial droop, or unilateral deficits). Patient does have a history of 2 vasovagal's (both episodes occurred after he had accidentally cut himself), but reports this episode was different. Patient denies chest pain or SOB. Patient does have a history of an [place] at 48 years old, where he did not exhibit chest pain, but instead exhibited nausea and pain between shoulder blades. Today, he was experiencing something similar (nausea, neck pain, and left upper abdominal discomfort). History of tPA and nitro drip at [facility] secondary to NSTEMI, with stent placement in the LAD and circumflex and [place]. Patient follows with Dr. Goodman in [place]. No recent injuries to the chest wall or stomach. No sick contacts. No history of stroke or strokelike symptoms. Patient does have a history of Lyme disease (diagnosed in 2012). He denies any rashes on his body. Patient took all of his regular morning medications today; no recent change in medications (such as blood pressure medications). He denies history of smoking, tobacco use, and alcohol use. Olinda rome is hypertensive at 158/61 at time of admission. ED course: NSS 500 mL IV ROS: Patient endorses lightheadedness, syncope, dry cough (which patient attributes to Aldactone), nausea, left lower rib cage (pain to palpation; otherwise he does not feel it), and occasional intermittent hand neuropathy. Patient denies fever, chills, night-sweats, PAYNE, rashes, tick-bites, changes in vision, chest pain, SOB, chest palpitations, pleuritic CP, hemoptysis, vomiting, changes in urinary/bowel habits, dysuria, blood in the urine/stool, Discharge Exam Constitutional WD/WN, vitals as above Neck normal visual inspection Respiratory normal respiratory effort, lungs clear to auscultation Cardiovascular RRR, no murmur, no edema Vessels: dorsalis pedis pulses present; no JVD and no carotid bruit Gastrointestinal (Abdomen) normal bowel sounds, soft, nontender, no hepatosplenomegaly Psychiatric A+Ox3, euthymic affect Updated Medication List Medication Instructions Recorded Confirmed Type ibuprofen 200 mg tablet (Motrin IB) 400 mg PO Q6H PRN Pain 08/14/19 03/08/24 History losartan 100 mg tablet (Cozaar) 100 mg PO DAILY 08/14/19 03/08/24 History aspirin 81 mg tablet,delayed 81 mg PO DAILY 02/05/23 03/08/24 History release carvedilol 6.25 mg tablet 6.25 mg PO BID 02/05/23 03/08/24 History omeprazole 10 mg capsule,delayed 10 mg PO DAILY #90 caps 03/19/23 03/08/24 Rx release famotidine 20 mg tablet (Acid 20 mg PO DAILY #90 tabs 03/31/23 03/08/24 Rx [employer] (famotidine)) rosuvastatin 10 mg tablet 10 mg PO DAILY 03/08/24 03/08/24 History spironolactone 25 mg tablet 25 mg PO DAILY 03/08/24 03/08/24 History Hospital Stay Data Consultations 03/08/24 16:13 ED Decision to Admit Stat 03/09/24 16:18 Consult [facility] expressive therapist Routine Diagnostic Imagining Performed 03/08/24 17:[address] [CT head/brain wo con] Urgent ECHO Pending Results Patient Have Any Pending Studies at Discharge: No Discharge Instructions Given to Patient (Per Discharging Provider) You were admitted for passing out which was likely from a vasovagal reaction. You ruled out for heart attack and had a normal echocardiogram and EKG. You had a normal CT scan of the head and a normal chest xray. Your blood work and urinalysis were normal. You will be sent a 30 day cardiac event monitor to wear to look for any further abnormal heart rhythms that could lead you to pass out. Please follow up with your PCP and [facility]. In the future, if you start to feel lightheaded again, please lie flat as soon as possible to avoid injury. While here, your thyroid function was abnormal. This may just be from the stress of passing out and this should be repeated by your PCP in the next few weeks. Total Time Total Time Spent Total Time Spent (In Minutes): 35 min Total Time Includes: Examination of the Patient, Discharge Planning and Medication Reconciliation Coding Level of Care Code 10098 INP/OBS DISCH >30 MIN Diagnoses Syncope R55 Syncope type: unspecified History of coronary artery disease Z86.79 GERD (gastroesophageal reflux disease) K21.9 Elevated TSH R79.89
== END 2024-03-09 17:16 | disposition home or self-care (01) ==
LOC: EDINP 14:56 → ED 14:56 → SUATTDRO 17:12 → 2N 21:31